=== PATIENT | female | born 1980 | race Caucasian/White ===

== ENCOUNTER 2018-12-18 18:15 | Outpatient (CLI) | payer MEDICAID ==
[2018-12-18 19:01] LABS: ADD MAN DIFF? NO
[2018-12-18 19:04] LABS: WHITE BLOOD COUNT 8.1 10^3/ul (4.8-10.8)
[2018-12-18 19:04] LABS: BASOPHILS % 0.2 % (0.0-2.0); EOSINOPHILS # 0.1 10^3/ul (0.0-0.5); EOSINOPHILS % 0.6 % (0.0-7.0); HEMOGLOBIN 11.9 g/dl (12.0-16.0); LYMPHOCYTES % 12.7 % (15.0-51.0); MEAN CORPUSCULAR HEMOGLOBIN 31.4 pg (29.0-33.0); MEAN CORPUSCULAR VOLUME 92.3 fl (82.0-101.0); MEAN PLATELET VOLUME 9.6 fl (7.4-10.4); MONOCYTE # 0.5 10^3/ul (0.3-0.9); MONOCYTES % 6.7 % (0.0-11.0); NEUTROPHIL # 6.4 10^3/ul (1.6-7.5); NEUTROPHILS % 78.9 % (39.0-77.0); PLATELET COUNT 244 10^3/UL (140-415); RED BLOOD COUNT 3.79 10^6/ul (4.20-5.40); RED CELL DISTRIBUTION WIDTH 13.3 % (11.5-14.5)
[2018-12-18 19:24] LABS: ALANINE AMINOTRANSFERASE 16 IU/L (13-69); ALBUMIN 3.3 g/dl (3.3-4.9); ALBUMIN/GLOBULIN RATIO 1.06; ALKALINE PHOSPHATASE 103 IU/L (42-121); ANION GAP 7 (5-13); ASPARTATE AMINO TRANSFERASE 22 IU/L (15-46); BILIRUBIN,INDIRECT 0.3 mg/dl (0-1.1); BILIRUBIN,TOTAL 0.3 mg/dl (0.2-1.3); BLOOD UREA NITROGEN 8 mg/dl (7-20); CALCIUM 9.2 mg/dl (8.4-10.2); CARBON DIOXIDE 24 mmol/L (21-31); CHLORIDE 108 mmol/L (97-110); CREATININE 0.45 mg/dl (0.44-1.00); Estimated GFR > 60 mL/min (>60); GLUCOSE 115 mg/dl (70-220); INR 0.92; POTASSIUM 3.4 mmol/L (3.5-5.1); PROTIME 12.5 Sec (11.9-14.9); SODIUM 139 mmol/L (135-144); TOTAL PROTEIN 6.4 g/dl (6.1-8.1); URIC ACID 4.2 mg/dl (3.1-7.9)
[2018-12-18 19:25] LABS: PARTIAL THROMBOPLASTIN TIME 25.5 Sec (23.0-35.0)
[2018-12-18 19:43] LABS: ADD UMIC YES; UR ASCORBIC ACID NEGATIVE (NEGATIVE); UR BACTERIA MANY /HPF (NONE SEEN); UR BILIRUBIN (Dip) NEGATIVE (NEGATIVE); UR BLOOD (Dip) NEGATIVE (NEGATIVE); UR CLARITY SLIGHTLY CLOUDY (CLEAR); UR COLOR YELLOW (YELLOW); UR GLUCOSE (Dip) NEGATIVE (NEGATIVE); UR KETONES (Dip) NEGATIVE (NEGATIVE); UR LEUKOCYTE ESTERASE (Dip) TRACE Leu/ul (NEGATIVE); UR NITRITE (Dip) NEGATIVE (NEGATIVE); UR RBC 2 /HPF (0-5); UR SPECIFIC GRAVITY (Dip) 1.005 (1.003-1.030); UR SQUAMOUS EPITHELIAL CELL MANY /HPF (FEW); UR TOTAL PROTEIN (Dip) NEGATIVE (NEGATIVE); UR UROBILINOGEN (Dip) NEGATIVE (NEGATIVE); UR WBC 4 /HPF (0-5)
== END 2018-12-18 22:15 | disposition home or self-care (01) ==
LOC: OBT 18:15 → L-D 18:16 → OBT 22:15
DX: O13.3 Gestational [pregnancy-induced] hypertension without significant proteinuria, third trimester (principal); O09.513 Supervision of elderly primigravida, third trimester; Z3A.36 36 weeks gestation of pregnancy
CPT/HCPCS: 76818; 80053; 81001; 84560; 85025; 85384; 85610; 85730

== ENCOUNTER 2018-12-20 18:32 | Inpatient (IN) | payer MEDICAID ==
[2018-12-20 19:06] LABS: ADD MAN DIFF? NO
[2018-12-20 19:07] LABS: BASOPHILS % 0.2 % (0.0-2.0); EOSINOPHILS # 0.1 10^3/ul (0.0-0.5); EOSINOPHILS % 0.8 % (0.0-7.0); HEMOGLOBIN 11.8 g/dl (12.0-16.0); LYMPHOCYTES % 11.8 % (15.0-51.0); MEAN CORPUSCULAR HEMOGLOBIN 31.2 pg (29.0-33.0); MEAN CORPUSCULAR HGB CONC 33.7 g/dl (32.0-37.0); MEAN CORPUSCULAR VOLUME 92.6 fl (82.0-101.0); MEAN PLATELET VOLUME 9.6 fl (7.4-10.4); MONOCYTE # 0.7 10^3/ul (0.3-0.9); NEUTROPHIL # 6.6 10^3/ul (1.6-7.5); NEUTROPHILS % 78.1 % (39.0-77.0); PLATELET COUNT 251 10^3/UL (140-415); RED BLOOD COUNT 3.78 10^6/ul (4.20-5.40); RED CELL DISTRIBUTION WIDTH 13.2 % (11.5-14.5)
[2018-12-20 19:07] LABS: WHITE BLOOD COUNT 8.5 10^3/ul (4.8-10.8)
[2018-12-20 19:22] LABS: ADD UMIC NO; UR ASCORBIC ACID NEGATIVE (NEGATIVE); UR BILIRUBIN (Dip) NEGATIVE (NEGATIVE); UR BLOOD (Dip) NEGATIVE (NEGATIVE); UR CLARITY CLEAR (CLEAR); UR COLOR YELLOW (YELLOW); UR GLUCOSE (Dip) NEGATIVE (NEGATIVE); UR KETONES (Dip) NEGATIVE (NEGATIVE); UR LEUKOCYTE ESTERASE (Dip) NEGATIVE Leu/ul (NEGATIVE); UR NITRITE (Dip) NEGATIVE (NEGATIVE); UR SPECIFIC GRAVITY (Dip) 1.005 (1.003-1.030); UR TOTAL PROTEIN (Dip) NEGATIVE (NEGATIVE); UR UROBILINOGEN (Dip) NEGATIVE (NEGATIVE)
[2018-12-20 19:25] LABS: ALANINE AMINOTRANSFERASE 18 IU/L (13-69); ALBUMIN 3.3 g/dl (3.3-4.9); ALBUMIN/GLOBULIN RATIO 0.94; ALKALINE PHOSPHATASE 113 IU/L (42-121); ANION GAP 9 (5-13); ASPARTATE AMINO TRANSFERASE 22 IU/L (15-46); BILIRUBIN,INDIRECT 0.3 mg/dl (0-1.1); BILIRUBIN,TOTAL 0.3 mg/dl (0.2-1.3); BLOOD UREA NITROGEN 6 mg/dl (7-20); CALCIUM 9.2 mg/dl (8.4-10.2); CARBON DIOXIDE 22 mmol/L (21-31); CHLORIDE 108 mmol/L (97-110); CREATININE 0.44 mg/dl (0.44-1.00); Estimated GFR > 60 mL/min (>60); GLUCOSE 113 mg/dl (70-220); POTASSIUM 3.4 mmol/L (3.5-5.1); SODIUM 139 mmol/L (135-144); TOTAL PROTEIN 6.8 g/dl (6.1-8.1); URIC ACID 4.2 mg/dl (3.1-7.9)
[2018-12-20 19:28] LABS: INR 0.89; PROTIME 12.2 Sec (11.9-14.9)
[2018-12-20 19:29] LABS: PARTIAL THROMBOPLASTIN TIME 26.4 Sec (23.0-35.0)
[2018-12-21] MEDS ORDERED: PHENYLephrine (100 MCG/ML) 10ML SYG (07:00)
[2018-12-21] MEDS ORDERED: AL HYDROX/MG HYDROX/SIMETH 30 ML CUP PO (07:00)
[2018-12-21] MEDS ORDERED: CARBOPROST 250 MCG INJ (07:00)
[2018-12-21] MEDS ORDERED: ACETAMINOPHEN 500 MG TAB PO (07:00)
[2018-12-21] MEDS: FERROUS SULFATE (EC) 325 MG TAB PO (08:57)
[2018-12-21] MEDS: PRENATAL VITAMIN PO (08:57)
[2018-12-21] MEDS: SENNA TAB PO (08:58)
[2018-12-21] MEDS ORDERED: MAGNESIUM SULFATE 4 GM/100 ML 100 ML IVPB ×2 (16:30)
[2018-12-21] MEDS: MAGNESIUM SULFATE 4 GM/100 ML 100 ML IVPB (16:45)
[2018-12-21] MEDS: MAGNESIUM SULFATE 20 GM/500 ML 500 ML IV (17:24)
[2018-12-21] MEDS: LACTATED RINGER'S 1,000 ML IV ×2 (17:27→19:00)
[2018-12-21 17:46] LABS: ADD MAN DIFF? NO
[2018-12-21 17:48] LABS: BASOPHILS % 0.3 % (0.0-2.0); EOSINOPHILS # 0.1 10^3/ul (0.0-0.5); EOSINOPHILS % 0.6 % (0.0-7.0); HEMATOCRIT 34.8 % (37.0-47.0); LYMPHOCYTES % 12.9 % (15.0-51.0); MEAN CORPUSCULAR HEMOGLOBIN 32.2 pg (29.0-33.0); MEAN CORPUSCULAR HGB CONC 34.5 g/dl (32.0-37.0); MEAN CORPUSCULAR VOLUME 93.3 fl (82.0-101.0); MEAN PLATELET VOLUME 9.4 fl (7.4-10.4); MONOCYTE # 0.6 10^3/ul (0.3-0.9); NEUTROPHILS % 77.4 % (39.0-77.0); PLATELET COUNT 259 10^3/UL (140-415); RED BLOOD COUNT 3.73 10^6/ul (4.20-5.40); RED CELL DISTRIBUTION WIDTH 13.3 % (11.5-14.5)
[2018-12-21 17:48] LABS: WHITE BLOOD COUNT 7.7 10^3/ul (4.8-10.8)
[2018-12-21 18:08] LABS: INR 0.91; PROTIME 12.4 Sec (11.9-14.9)
[2018-12-21 18:09] LABS: ALANINE AMINOTRANSFERASE 23 IU/L (13-69); ALBUMIN 3.3 g/dl (3.3-4.9); ALKALINE PHOSPHATASE 119 IU/L (42-121); ANION GAP 6 (5-13); ASPARTATE AMINO TRANSFERASE 27 IU/L (15-46); BILIRUBIN,INDIRECT 0.4 mg/dl (0-1.1); BILIRUBIN,TOTAL 0.4 mg/dl (0.2-1.3); BLOOD UREA NITROGEN 7 mg/dl (7-20); CALCIUM 9.2 mg/dl (8.4-10.2); CARBON DIOXIDE 24 mmol/L (21-31); CHLORIDE 109 mmol/L (97-110); CREATININE 0.55 mg/dl (0.44-1.00); Estimated GFR > 60 mL/min (>60); GLUCOSE 91 mg/dl (70-220); POTASSIUM 3.1 mmol/L (3.5-5.1); SODIUM 139 mmol/L (135-144); TOTAL PROTEIN 6.6 g/dl (6.1-8.1); URIC ACID 4.9 mg/dl (3.1-7.9)
[2018-12-21] MEDS ORDERED: OXYTOCIN 30 UNITS/LR 500 ML IV ×3 (19:00→23:30)
[2018-12-21] MEDS ORDERED: METHYLERGONOVINE 0.2 MG INJ IM ×2 (19:00→23:30)
[2018-12-21] MEDS ORDERED: CARBOPROST 250 MCG INJ IM ×2 (19:00→23:30)
[2018-12-21] MEDS ORDERED: CITRIC ACID/NA CITRATE 30 ML CUP (21:46)
[2018-12-21] MEDS ORDERED: morphine SULFATE/PF (10 MG/10 ML) INJ (21:54)
[2018-12-21] MEDS: CITRIC ACID/NA CITRATE 30 ML CUP PO (21:55)
[2018-12-21] MEDS ORDERED: ONDANSETRON 4 MG INJ IV (22:30)
[2018-12-21] MEDS ORDERED: KETOROLAC 30 MG INJ IV (22:30)
[2018-12-21] MEDS ORDERED: FENTAnyl 50 MCG/ML VIAL IV ×3 (22:30)
[2018-12-21] MEDS ORDERED: PROCHLORPERAZINE 10 MG INJ IV (22:30)
[2018-12-21] MEDS ORDERED: DIPHENHYDRAMINE 50 MG INJ IV (22:30)
[2018-12-21] MEDS ORDERED: EPHEDrine 25 MG/5 ML SYG (22:30)
[2018-12-21] MEDS ORDERED: MEPERIDINE 25 MG INJ IV (22:30)
[2018-12-21] MEDS ORDERED: HYDROmorphONE 1 MG/5 ML IV SYRINGE IV ×3 (22:30)
[2018-12-21] MEDS ORDERED: LABETALOL HCL 20MG INJ IV (22:30)
[2018-12-21] MEDS ORDERED: FENTAnyl 50 MCG/ML VIAL (22:39)
[2018-12-21] MEDS: CEFAZOLIN 2 GM/50 ML (PMX) 50 ML IVPB (22:56)
[2018-12-21] MEDS ORDERED: METHYLERGONOVINE 0.2 MG TAB PO (23:30)
[2018-12-21] MEDS ORDERED: LANOLIN HPA 1 PKT TOP (23:30)
[2018-12-21] MEDS ORDERED: MISOPROSTOL 200 MCG TAB PR (23:30)
[2018-12-22] MEDS ORDERED: DIPHENHYDRAMINE 50 MG INJ IV
[2018-12-22] MEDS ORDERED: HYDROmorphONE 0.5 MG/0.5 ML SYG IV ×2
[2018-12-22] MEDS ORDERED: NALOXONE (0.4 MG/ML) INJ IV
[2018-12-22] MEDS ORDERED: ZOLPIDEM 5 MG TAB PO
[2018-12-22] MEDS ORDERED: ONDANSETRON 4 MG INJ IV
[2018-12-22] MEDS: MISOPROSTOL 200 MCG TAB PR (00:18)
[2018-12-22] MEDS: OXYTOCIN 30 UNITS/LR 500 ML IV (00:20)
[2018-12-22 00:53] LABS: MAGNESIUM 3.6 mg/dl (1.7-2.5)
[2018-12-22 01:24] LABS: HEPATITIS B SURFACE ANTIGEN NEGATIVE (NEGATIVE)
[2018-12-22] MEDS: FAMOTIDINE 20 MG INJ IV (03:27)
[2018-12-22] MEDS: METOCLOPRAMIDE 10 MG INJ IM (03:27)
[2018-12-22] MEDS: ONDANSETRON 4 MG INJ IV (03:27)
[2018-12-22] MEDS: DEXTROSE 5%-LR 1,000 ML IV ×3 (03:28→15:16)
[2018-12-22] MEDS: MAGNESIUM SULFATE 20 GM/500 ML 500 ML IV ×2 (04:23→14:02)
[2018-12-22] MEDS: IBUPROFEN 800 MG TAB PO ×3 (06:00→22:00)
[2018-12-22] MEDS: LACTATED RINGER'S 1,000 ML IV ×2 (06:50→07:53)
[2018-12-22 08:22] LABS: ADD MAN DIFF? NO
[2018-12-22 08:26] LABS: WHITE BLOOD COUNT 14.2 10^3/ul (4.8-10.8)
[2018-12-22 08:26] LABS: BASOPHILS % 0.1 % (0.0-2.0); HEMATOCRIT 31.1 % (37.0-47.0); HEMOGLOBIN 10.6 g/dl (12.0-16.0); LYMPHOCYTES # 0.7 10^3/ul (0.8-2.9); LYMPHOCYTES % 4.7 % (15.0-51.0); MEAN CORPUSCULAR HEMOGLOBIN 31.7 pg (29.0-33.0); MEAN CORPUSCULAR HGB CONC 34.1 g/dl (32.0-37.0); MEAN CORPUSCULAR VOLUME 93.1 fl (82.0-101.0); MEAN PLATELET VOLUME 9.9 fl (7.4-10.4); MONOCYTE # 0.6 10^3/ul (0.3-0.9); MONOCYTES % 4.5 % (0.0-11.0); NEUTROPHIL # 12.8 10^3/ul (1.6-7.5); NEUTROPHILS % 90.1 % (39.0-77.0); PLATELET COUNT 275 10^3/UL (140-415); RED BLOOD COUNT 3.34 10^6/ul (4.20-5.40); RED CELL DISTRIBUTION WIDTH 13.3 % (11.5-14.5)
[2018-12-22 08:47] LABS: MAGNESIUM 4.4 mg/dl (1.7-2.5)
[2018-12-22] MEDS: FERROUS SULFATE (EC) 325 MG TAB PO (08:51)
[2018-12-22] MEDS: SENNA TAB PO (08:51)
[2018-12-22] MEDS: PRENATAL VITAMIN PO (08:51)
[2018-12-22] MEDS: SENNA/DOCUSATE NA (8.6MG/50MG) TAB PO ×2 (08:51→21:08)
[2018-12-22] MEDS ORDERED: DIPHTH/TET/ACEL PERTUSS (ADULT) 0.5 ML VIAL IM* (11:00)
[2018-12-22] MEDS ORDERED: HYDROCODONE/APAP (5/325) TAB NGT (11:00)
[2018-12-22 12:35] LABS: MAGNESIUM 4.6 mg/dl (1.7-2.5)
[2018-12-22] MEDS: HYDROCODONE/APAP (5/325) TAB GTB ×2 (14:00→22:00)
[2018-12-22 16:22] LABS: RAPID PLASMA REAGIN NONREACTIVE (NR)
[2018-12-22 20:02] LABS: MAGNESIUM 4.6 mg/dl (1.7-2.5)
[2018-12-22] MEDS: KETOROLAC 30 MG INJ IV (22:07)
[2018-12-23] MEDS: MAGNESIUM HYDROXIDE 30ML CUP PO (00:41)
[2018-12-23] MEDS: IBUPROFEN 800 MG TAB PO ×3 (05:26→21:45)
[2018-12-23] MEDS: HYDROCODONE/APAP (5/325) TAB GTB ×3 (05:27→21:46)
[2018-12-23] MEDS: SENNA/DOCUSATE NA (8.6MG/50MG) TAB PO ×2 (08:47→21:45)
[2018-12-23] MEDS: NIFEdipine (XL) 30 MG TAB PO (23:06)
[2018-12-24] MEDS: HYDROCODONE/APAP (5/325) TAB GTB ×3 (05:26→23:02)
[2018-12-24] MEDS: IBUPROFEN 800 MG TAB PO ×3 (05:26→23:01)
[2018-12-24] MEDS: DIPHTH/TET/ACEL PERTUSS (ADULT) 0.5 ML VIAL IM* (09:04)
[2018-12-24] MEDS: MEASLES,MUMPS,RUBELLA VACCINE INJ SC* (09:04)
[2018-12-24] MEDS: MAGNESIUM HYDROXIDE 30ML CUP PO ×2 (09:21→21:14)
[2018-12-24] MEDS: NIFEdipine (XL) 30 MG TAB PO ×2 (09:25→21:14)
[2018-12-24] MEDS: SENNA/DOCUSATE NA (8.6MG/50MG) TAB PO ×2 (09:26→21:14)
[2018-12-25] MEDS: IBUPROFEN 800 MG TAB PO ×2 (06:17→14:50)
[2018-12-25] MEDS: HYDROCODONE/APAP (5/325) TAB GTB ×2 (06:17→14:51)
[2018-12-25] MEDS: NIFEdipine (XL) 30 MG TAB PO ×2 (09:47→12:54)
[2018-12-25] MEDS: SENNA/DOCUSATE NA (8.6MG/50MG) TAB PO (09:47)
[2018-12-25] MEDS: MAGNESIUM HYDROXIDE 30ML CUP PO (14:55)
[2018-12-26] MEDS ORDERED: NIFEdipine (XL) 60 MG TAB PO (09:00)
== END 2018-12-25 19:02 | disposition home or self-care (01) | DRG 788 ==
LOC: OBT 18:32 → L-D 12-21 03:10 → PP1 12-22 02:43 → L-D 18:32 → OBT 20:55 → L-D 21:28
PROC: 10D00Z1 Extraction of Products of Conception, Low, Open Approach (ICD-10-PCS; principal; 2018-12-21 21:30)
DX: O60.13X0 Preterm labor second trimester with preterm delivery third trimester, not applicable or unspecified (principal); O32.1XX0 Maternal care for breech presentation, not applicable or unspecified; O34.13 Maternal care for benign tumor of corpus uteri, third trimester; O14.14 Severe pre-eclampsia complicating childbirth; Z3A.36 36 weeks gestation of pregnancy; Z37.0 Single live birth
CPT/HCPCS: 76818; 80053; 81003; 83735; 84560; 85025; 85384; 85610; 85730; 86592; 86850; 86900; 86901; 87340; 88307; 99464